=== PATIENT | female | born 1995 | race Caucasian/White ===

== ENCOUNTER 2017-07-28 10:39 | Emergency (ER) | payer OTHER, BC ==
[~2017-07-28] VITALS: Ht 167.6 cm; Wt 58.0 kg
[~2017-07-28 10:39] MED LIST: MACR100C PO
[2017-07-28 11:08] VITALS: BP 116/73; PULSE 84; RESP 18; TEMP 98.7; O2SAT 99
[2017-07-28] MEDS ORDERED: DICL50TA PO (11:18)
[2017-07-28] MEDS ORDERED: BACL10TA PO (11:18)
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
== END 2017-07-28 11:50 | disposition home or self-care (01) ==
LOC: NEPD 10:39
DX: M62.830 Muscle spasm of back (principal); M54.2 Cervicalgia; M25.511 Pain in right shoulder; V89.2XXA Person injured in unspecified motor-vehicle accident, traffic, initial encounter; F12.90 Cannabis use, unspecified, uncomplicated
CPT/HCPCS: 99283